=== PATIENT | male | born 1980 | race Caucasian/White ===

== ENCOUNTER 2021-06-15 17:27 | Emergency (ER) | payer SELFPAY ==
[~2021-06-15 17:27] MED LIST: BACTRIM DS 8001 TAB PO; CEPHALEXIN500 M1 PO; DECADRON 4MG TAB4 MG PO; DILAUDID 2MG TAB2 MG PO; ED NORCO 56 UDTAB/BO PO; FLEXERIL10 MG PO; INDOMETHACIN50 MG PO; KETOROLAC TROME10 MG PO; LIORESAL 1010 MG/TAB PO; NORCO 325 MG-101 TA1 PO; NORCO 325 MG-51 TA1 PO; NORCO 325 MG-51 TAB PO; ORPHENADRINE C100 MG PO; OXYCODONE HCL20 M1 PO; OXYCONTIN CR20 MG PO; OXYCONTIN20 M1; SEPTRA DS 8001 TAB PO; ZOFRAN4 M2 PO
[2021-06-15 17:32] VITALS: BP 123/81
== END 2021-06-15 18:52 | disposition left against medical advice (07) ==
LOC: ED 17:27
DX: L03.111 Cellulitis of right axilla (principal); L72.3 Sebaceous cyst; G89.29 Other chronic pain; M54.9 Dorsalgia, unspecified; F17.200 Nicotine dependence, unspecified, uncomplicated; Z79.891 Long term (current) use of opiate analgesic